=== PATIENT | male | born 1965 | race Caucasian/White ===

== ENCOUNTER 2016-10-20 21:54 | Emergency (ER) | payer OTHER ==
[2016-10-20 22:16] VITALS: RESP 18
[2016-10-20] MEDS ORDERED: SODIUM CHLORIDE 0.9% 1,000 ML IV ONE (23:27)
--- NOTE | 2016-10-20 23:30 | ED ---
Abdominal Pain HPI - General Chief Complaint: Abdominal Pain Stated Complaint: abd pain Time Seen by Provider: 10/20/16 22:43 Source: patient, RN notes reviewed Mode of arrival: ambulatory Limitations: no limitations - History of Present Illness Initial Comments: Patient is a 51-year-old male presents to the emergency room for evaluation of abdominal pain. Patient states pain is been going on throughout the day today. Patient states he was diagnosed with hepatitis C few weeks ago by his primary care provider. Patient states today he has been having worsening pain in his right upper quadrant and left upper quadrant. Patient states he has been nauseous but denies vomiting. Patient denies constipation or diarrhea. Patient denies chest pain or shortness of breath. Patient states the pain worsened after he was done eating [employer] today. Patient denies fevers or chills. Patient denies headache or dizziness. Patient states he has a history of umbilical hernia repair. Patient denies any other history of abdominal surgeries. Patient denies pain or burning during urination, trouble urinating or blood in urine. Patient denies any flank pain. - Related Data Home Medications Medication Instructions Recorded Confirmed Ascorbic Acid [Vitamin C] 500 mg PO DAILY 10/20/16 10/20/16 Cholecalciferol [Vitamin D3] 400 unit PO DAILY 10/20/16 10/20/16 Ferrous Sulfate [Feosol] 325 mg PO DAILY 10/20/16 10/20/16 Previous Rx's Medication Instructions Recorded Naproxen [Naprosyn] 500 mg PO Q12HR PRN #20 tab 10/21/16 Allergies Allergy/AdvReac Type Severity Reaction Status Date / Time No Known Allergies Allergy Verified 10/20/16 22:44 Review of Systems ROS Statement: Those systems with pertinent positive or pertinent negative responses have been documented in the HPI. ROS Other: All systems not noted in ROS Statement are negative. Past Medical History Past Medical History: No Reported History History of Any Multi-Drug Resistant Organisms: None Reported Past Surgical History: No Surgical Hx Reported Past Psychological History: No Psychological Hx Reported Smoking Status: Never smoker Past Alcohol Use History: None Reported Past Drug Use History: None Reported General Exam - General Exam Comments Initial Comments: Sitting in exam room, no distress. Limitations: no limitations General appearance: alert, in no apparent distress Head exam: Present: atraumatic, normocephalic, normal inspection Eye exam: Present: normal appearance ENT exam: Present: normal exam Neck exam: Present: normal inspection Respiratory exam: Present: normal lung sounds bilaterally. Absent: respiratory distress Cardiovascular Exam: Present: regular rate, normal rhythm, normal heart sounds GI/Abdominal exam: Present: soft, tenderness (Right upper quadrant, left upper quadrant, upper midepigastric), normal bowel sounds. Absent: distended, guarding, rebound, rigid Extremities exam: Present: normal inspection Back exam: Present: normal inspection Neurological exam: Present: alert, oriented X3, CN II-XII intact, normal gait Psychiatric exam: Present: normal affect, normal mood Skin exam: Present: warm, dry, intact, normal color. Absent: rash Course Vital Signs 10/20/16 10/21/16 10/21/16 22:12 01:00 02:21 Temperature 98.2 F 100.1 F H 98.0 F Pulse Rate 90 93 92 Respiratory 18 18 18 Rate Blood Pressure 187/88 155/84 129/78 O2 Sat by Pulse 95 97 96 Oximetry Medical Decision Making - Medical Decision Making Patient is a 51-year-old male presents emergency room for evaluation of abdominal pain. Patient noted to have elevated liver enzymes. Ultrasound shows evidence of cholelithiasis without cholecystitis. Patient will be discharged advised follow-up with general surgery. Advised patient to refrain from fatty or spicy foods. Patient states he understands everything that was discussed with him. Return parameters discussed. Case discussed Dr. Perdomo. - Lab Data Result diagrams: 10/20/16 23:50 10/20/16 23:50 Lab Results 10/20/16 10/20/16 Range/Units 23:50 23:50 WBC 7.0 (3.8-10.6) k/uL RBC 4.80 (4.30-5.90) m/uL Hgb 15.2 (13.0-17.5) gm/dL Hct 45.1 (39.0-53.0) % MCV 93.8 (80.0-100.0) fL MCH 31.5 (25.0-35.0) pg MCHC 33.6 (31.0-37.0) g/dL RDW 13.2 (11.5-15.5) % Plt Count 218 (150-450) k/uL Neutrophils % 73 % Lymphocytes % 16 % Monocytes % 6 % Eosinophils % 3 % Basophils % 1 % Neutrophils # 5.1 (1.3-7.7) k/uL Lymphocytes # 1.1 (1.0-4.8) k/uL Monocytes # 0.4 (0-1.0) k/uL Eosinophils # 0.2 (0-0.7) k/uL Basophils # 0.0 (0-0.2) k/uL Sodium 139 (137-145) mmol/L Potassium 4.3 (3.5-5.1) mmol/L Chloride 105 (98-107) mmol/L Carbon Dioxide 24 (22-30) mmol/L Anion Gap 10 mmol/L BUN 15 (9-20) mg/dL Creatinine 0.80 (0.66-1.25) mg/dL Est GFR (MDRD) Af Amer >60 (>60 ml/min/1.73 sqM) Est GFR (MDRD) Non-Af >60 (>60 ml/min/1.73 sqM) Glucose 176 H (74-99) mg/dL Calcium 9.5 (8.4-10.2) mg/dL Total Bilirubin 1.1 (0.2-1.3) mg/dL AST 102 H (17-59) U/L ALT 179 H (21-72) U/L Alkaline Phosphatase 67 (38-126) U/L Total Protein 7.1 (6.3-8.2) g/dL Albumin 3.9 (3.5-5.0) g/dL Amylase 81 (30-110) U/L - Radiology Data Radiology results: report reviewed, image reviewed Disposition Clinical Impression: Cholelithiasis Disposition: HOME SELF-CARE Condition: Good Instructions: Biliary Colic (ED), Gallstones (ED) Additional Instructions: Take Tylenol or Motrin as needed for pain. Please follow-up with general surgeon for further evaluation. If any new symptom arises or symptoms worsen, return to ER as soon as possible. Prescriptions: Naproxen [Naprosyn] 500 mg PO Q12HR PRN #20 tab PRN Reason: Pain Referrals: Mann Lucio MD [Primary Care Provider] - 1-2 days Bertrand Venegas MD [STAFF PHYSICIAN] - 1-2 days Time of Disposition: 01:59
[2016-10-21 00:02] LABS: Basophils % (A) 1 %; CH 32.8; CHCM 35.1; Eosinophils # (A) 0.2 k/uL (0-0.7); Eosinophils % (A) 3 %; HCT 45.1 % (39.0-53.0); HDW 2.55; HGB 15.2 gm/dL (13.0-17.5); Luc # (Auto) 0.11; Luc % (Auto) 2; Lymphocytes # (A) 1.1 k/uL (1.0-4.8); Lymphocytes % (A) 16 %; MCH 31.5 pg (25.0-35.0); MCHC 33.6 g/dL (31.0-37.0); MCV 93.8 fL (80.0-100.0); Mean Platelet Volume 6.5; Monocytes # (A) 0.4 k/uL (0-1.0); Monocytes % (A) 6 %; Neutrophils # (A) 5.1 k/uL (1.3-7.7); Neutrophils % (A) 73 %; RDW 13.2 % (11.5-15.5); WBC (Perox) 6.66
[2016-10-21 00:14] LABS: ALT 179 U/L (21-72); AST 102 U/L (17-59); Alkaline Phosphatase 67 U/L (38-126); Amylase 81 U/L (30-110); Anion Gap 10 mmol/L; Blood Urea Nitrogen 15 mg/dL (9-20); Calcium 9.5 mg/dL (8.4-10.2); Carbon Dioxide 24 mmol/L (22-30); Chloride 105 mmol/L (98-107); Glucose 176 mg/dL (74-99); Non-African American GFR(MDRD) >60 (>60 ml/min/1.73 sqM); Potassium 4.3 mmol/L (3.5-5.1); Sodium 139 mmol/L (137-145); Total Bilirubin 1.1 mg/dL (0.2-1.3); Total Protein 7.1 g/dL (6.3-8.2)
[2016-10-21] MEDS ORDERED: ONDANSETRON 4 MG/2 ML VIAL IVP STA (00:24)
[2016-10-21] MEDS ORDERED: HYDROmorphone 1 MG/ML 1 ML SYRINGE IVP STA (00:25)
[2016-10-21] MEDS ORDERED: KETOROLAC 30 MG/ML 1 ML VIAL IVP STA (01:03)
--- NOTE | 2016-10-21 01:37 | US ---
EXAM: US Abdomen Limited, Right Upper Quadrant CLINICAL HISTORY: Reason: Pain Abdominal pain. Nausea. TECHNIQUE: Real-time ultrasound of the right upper quadrant with image documentation. COMPARISON: No relevant prior studies available. FINDINGS: Liver: Mild hepatomegaly, 20 cm in length. No intrahepatic bile duct dilation. Gallbladder: Multiple gallbladder stones, largest 2.9 cm. Positive sonographic Tena sign. No gallbladder wall thickening or pericholecystic fluid. Common bile duct: Common bile duct 5.0 mm. Distal duct obscured by bowel gas. No stones. No dilation. Pancreas: Obscured by bowel gas. Right kidney: Right kidney 13 cm in length. No stones. No hydronephrosis. Other findings: Per technologist notes: Difficult/limited exam due to patient body habitus and overlying bowel gas. IMPRESSION: Cholelithiasis without ultrasound findings of cholecystitis. Positive sonographic Tena sign. No biliary dilation.
[2016-10-21 02:23] VITALS: BP 129/78; PULSE 92; TEMP 98
== END 2016-10-21 02:21 | disposition home or self-care (01) ==
LOC: EC 21:54
DX: K80.20 Calculus of gallbladder without cholecystitis without obstruction (principal); K80.50 Calculus of bile duct without cholangitis or cholecystitis without obstruction; R11.0 Nausea; Z79.899 Other long term (current) drug therapy; Z53.20 Procedure and treatment not carried out because of patient's decision for unspecified reasons
CPT/HCPCS: 99284; 96374; 96375; 96361; 36415; 80053; 82150; 85025; 76705; J2405; J1885

== ENCOUNTER → 2016-12-06 | Outpatient (CLI) | payer OTHER ==
[2016-12-06 15:15] LABS: Bilirubin, Delta 0.3 mg/dL (0.0-0.2); Total Bilirubin 0.6 mg/dL (0.2-1.3); Total Protein 7.1 g/dL (6.3-8.2)
[2016-12-08 15:30] LABS: HCV Qualitative Result DETECTED (Not detected)
== END | disposition home or self-care (01) ==
LOC: LABWHC1 14:31
DX: B18.2 Chronic viral hepatitis C (principal)
CPT/HCPCS: 36415; 80076; 87522; 87902

== ENCOUNTER → 2017-04-25 | Outpatient (CLI) | payer OTHER ==
[2017-04-25 15:07] LABS: Basophils % (A) 1 %; CH 32.4; CHCM 34.2; Eosinophils # (A) 0.2 k/uL (0-0.7); Eosinophils % (A) 3 %; HDW 2.88; HGB 15.5 gm/dL (13.0-17.5); Luc # (Auto) 0.11; Luc % (Auto) 2; Lymphocytes # (A) 1.4 k/uL (1.0-4.8); Lymphocytes % (A) 23 %; MCH 31.3 pg (25.0-35.0); MCHC 32.9 g/dL (31.0-37.0); MCV 95.2 fL (80.0-100.0); Mean Platelet Volume 6.8; Monocytes # (A) 0.3 k/uL (0-1.0); Monocytes % (A) 6 %; Neutrophils % (A) 66 %; RBC 4.93 m/uL (4.30-5.90); RDW 12.4 % (11.5-15.5)
[2017-04-25 15:24] LABS: Bilirubin, Delta 0.3 mg/dL (0.0-0.2); Total Bilirubin 0.6 mg/dL (0.2-1.3); Total Protein 7.2 g/dL (6.3-8.2)
[2017-04-26 15:13] LABS: Hepatits C Virus RNA, Quant <12 IU/mL (<12); LOG HCV IU/mL <1.08 (<1.08)
== END | disposition home or self-care (01) ==
LOC: LABWHC1 14:40
PROVIDERS: ATTEND Physician Assistant
DX: B18.2 Chronic viral hepatitis C (principal)
CPT/HCPCS: 36415; 80076; 85025; 87522

== ENCOUNTER → 2018-03-10 | Outpatient (CLI) | payer OTHER ==
--- NOTE | 2018-03-10 16:01 | US ---
EXAMINATION TYPE: US bladder DATE OF EXAM: 03/10/2018 COMPARISON: NONE CLINICAL HISTORY: R35.1 Nocturia. Frequent urination at night, patient states getting up 3 or 4 times a night. Check bladder. EXAM MEASUREMENTS: Post Void Residual Volume: 11.7 mL Color Doppler performed to assess ureteral jets. Bilateral Jets seen Normal Post Void Residual (less than 50ml): Yes IMPRESSION: 1. Urinary bladder appears unremarkable by ultrasound.
== END | disposition home or self-care (01) ==
LOC: RADUSWWP 15:34
PROVIDERS: ATTEND Family Medicine
DX: R35.1 Nocturia (principal)
CPT/HCPCS: 76857

== ENCOUNTER → 2018-06-26 | Outpatient (CLI) | payer OTHER ==
--- NOTE | 2018-06-27 06:22 | US ---
EXAMINATION TYPE: US bladder DATE OF EXAM: 06/26/2018 COMPARISON: US March 02, 2018. CLINICAL HISTORY: R35.0 frequent urination. EXAM MEASUREMENTS: Post Void Residual Volume: no residual fluid noted patient states he drank 32 ounces of water and finished at 3:15. He was not full at first check and w as instructed to drink more. Patient still not very full at recheck. Color Doppler performed to assess ureteral jets. Bilateral Jets seen: not seen. Normal Post Void Residual (less than 50ml): no residual fluid noted, Bladder is not greatly distended without intraluminal mass or wall thickening. Bilateral distal urete r jets are not seen. Patient completely empties bladder on voiding. IMPRESSION: No abnormal post void residual noted.
== END | disposition home or self-care (01) ==
LOC: RADUSWWP 16:18
PROVIDERS: ATTEND Family Medicine
DX: R35.0 Frequency of micturition (principal)
CPT/HCPCS: 76857

== ENCOUNTER 2019-03-16 17:22 | Inpatient (IN) | payer OTHER ==
[2019-03-16] MEDS ORDERED: SODIUM CHLORIDE 0.9% 1,000 ML IV STA (18:39)
[2019-03-16] MEDS ORDERED: ONDANSETRON 4 MG/2 ML VIAL IVP STA (18:39)
[2019-03-16] MEDS ORDERED: MAG HYDROX/AL HYDROX/SIMETH 30 ML, HYOSCYAMINE ELIXIR 10 ML, CIMETIDINE HCL 300 MG, LID... PO STA ×4 (18:40)
--- NOTE | 2019-03-16 18:43 | ED ---
Abdominal Pain HPI - General Source: patient Mode of arrival: ambulatory Limitations: no limitations <Sabrina Lopez - Last Filed: 03/16/19 23:27> <Nancy Greene - Last Filed: 03/20/19 16:14> - General Chief Complaint: Abdominal Pain Stated Complaint: epigastric pain Time Seen by Provider: 03/16/19 18:05 - History of Present Illness Initial Comments: 54-year-old male patient presents to the emergency department today for evaluation of midepigastric pain. Patient states symptoms started 2 days ago. Patient states he has been having nausea with this. States pain and nausea worsened with any attempts at eating. He states the pain does radiate through to his back. He denies any fevers but states he has been having cold sweats. Denies any chest pain or shortness of breath. He did have a history of hernia surgery but denies any other abdominal surgeries. Denies any use of medications at this time. He denies any recent travel or sick contacts. Denies any diarrhea or constipation. States he has not used alcohol or drugs for the last 20 years. Patient denies any recent rash, numbness, tingling, dizziness, weakness, hematuria, dysuria, urinary urgency, urinary frequency, headache, visual changes, or any other complaints. (Sabrina Lopez) - Related Data Home Medications Medication Instructions Recorded Confirmed Benazepril [Lotensin] 10 mg PO DAILY 03/16/19 03/16/19 Chlorthalidone [Hygroton] 25 mg PO DAILY 03/16/19 03/16/19 Ergocalciferol [Vitamin D2 50,000 unit PO Q30D 03/16/19 03/16/19 (DRISDOL)] Multivitamins, Thera [Multivitamin 1 tab PO DAILY 03/16/19 03/16/19 (formulary)] Allergies Allergy/AdvReac Type Severity Reaction Status Date / Time No Known Allergies Allergy Verified 03/19/19 10:38 Review of Systems ROS Other: All systems not noted in ROS Statement are negative. <Sabrina Lopez - Last Filed: 03/16/19 23:27> ROS Other: All systems not noted in ROS Statement are negative. <Nancy Greene - Last Filed: 03/20/19 16:14> ROS Statement: Those systems with pertinent positive or pertinent negative responses have been documented in the HPI. Past Medical History Past Medical History: No Reported History History of Any Multi-Drug Resistant Organisms: None Reported Past Surgical History: No Surgical Hx Reported Past Psychological History: No Psychological Hx Reported Smoking Status: Never smoker Past Alcohol Use History: None Reported Past Drug Use History: None Reported <Sabrina Lopez - Last Filed: 03/16/19 23:27> General Exam Limitations: no limitations General appearance: alert, in no apparent distress, other (This is a well- developed, well-nourished adult male patient in no acute distress. Vital signs upon presentation are temperature 97.4F, pulse 102, respirations 18, blood pressure 152/83, pulse ox 97% on room air.) Eye exam: Present: normal appearance, PERRL, EOMI. Absent: scleral icterus, conjunctival injection, periorbital swelling ENT exam: Present: normal exam, normal oropharynx, mucous membranes moist Respiratory exam: Present: normal lung sounds bilaterally. Absent: respiratory distress, wheezes, rales, rhonchi, stridor Cardiovascular Exam: Present: regular rate, normal rhythm, normal heart sounds. Absent: systolic murmur, diastolic murmur, rubs, gallop, clicks GI/Abdominal exam: Present: soft, tenderness (Midepigastric tenderness), normal bowel sounds. Absent: distended, guarding, rebound, rigid Neurological exam: Present: alert, oriented X3, CN II-XII intact Psychiatric exam: Present: normal affect, normal mood Skin exam: Present: warm, dry, intact, normal color. Absent: rash <Sabrina Lopez - Last Filed: 03/16/19 23:27> Course Vital Signs 03/16/19 03/16/19 03/17/19 17:24 23:19 00:00 Temperature 97.4 F L 98.0 F Pulse Rate 102 H 97 Pulse Rate [ 110 H Supine Pulse Oximetery] Respiratory 18 20 20 Rate Blood Pressure 152/83 152/90 Blood Pressure 111/68 [Right Arm Supine] O2 Sat by Pulse 97 98 95 Oximetry Medical Decision Making - Lab Data Result diagrams: 03/16/19 18:35 03/16/19 18:35 - EKG Data -: EKG Interpreted by Wa - Radiology Data Radiology results: report reviewed, image reviewed <Sabrina Lopez - Last Filed: 03/16/19 23:27> - Lab Data Result diagrams: 03/20/19 08:29 03/20/19 08:29 <Nancy Greene - Last Filed: 03/20/19 16:14> - Medical Decision Making 54-year-old male patient presented to the emergency department today for evaluation of midepigastric abdominal pain that radiates through to his back. He also reported nausea and vomiting. Physical examination did reveal midepigastric tenderness. Labs reviewed and did reveal elevated lipase at 1400. Ultrasound of the right upper quadrant abdomen was obtained and showed large gallstones with no dilated ducts or sign of cholecystitis. Case was discussed with Dr. Lucio who agrees to admission and GI consult. Informed patient of all results and plan, he is agreeable. Patient requested to receive no narcotics as he has a history of drug abuse. Toradol has been ordered for pain control. (Sabrina Lopez) I was available for consultation in the emergency department. The history and physical exam were done by the midlevel provider. I was consulted for this patients care. I reviewed the case with the midlevel provider and based on their presentation of the patient, I agree with the assessment, medical decision making and plan of care as documented. Chart was dictated using [employer] dictation software. Attempts were made to correct any dictation errors however some typographical errors may persist. (Nancy Greene) - Lab Data Lab Results 03/16/19 03/16/19 03/16/19 Range/Units 10:00 18:35 18:35 WBC 13.8 H (3.8-10.6) k/uL RBC 5.16 (4.30-5.90) m/uL Hgb 15.4 (13.0-17.5) gm/dL Hct 46.8 (39.0-53.0) % MCV 90.7 (80.0-100.0) fL MCH 29.9 (25.0-35.0) pg MCHC 32.9 (31.0-37.0) g/dL RDW 13.5 (11.5-15.5) % Plt Count 347 (150-450) k/uL Neutrophils % 82 % Lymphocytes % 9 % Monocytes % 4 % Eosinophils % 3 % Basophils % 1 % Neutrophils # 11.4 H (1.3-7.7) k/uL Lymphocytes # 1.3 (1.0-4.8) k/uL Monocytes # 0.6 (0-1.0) k/uL Eosinophils # 0.4 (0-0.7) k/uL Basophils # 0.1 (0-0.2) k/uL Sodium 131 L (137-145) mmol/L Potassium 4.5 (3.5-5.1) mmol/L Chloride 92 L (98-107) mmol/L Carbon Dioxide 28 (22-30) mmol/L Anion Gap 11 mmol/L BUN 15 (9-20) mg/dL Creatinine 0.92 (0.66-1.25) mg/dL Est GFR (CKD-EPI)AfAm >90 (>60 ml/min/1.73 sqM) Est GFR (CKD-EPI)NonAf >90 (>60 ml/min/1.73 sqM) Glucose 243 H (74-99) mg/dL Estimated Ave Glu mg/dL 180 Hemoglobin A1c 7.9 H (4.0-6.0) % Calcium 9.6 (8.4-10.2) mg/dL Total Bilirubin 0.7 (0.2-1.3) mg/dL AST 19 (17-59) U/L ALT 23 (21-72) U/L Alkaline Phosphatase 80 (38-126) U/L Troponin I (0.000-0.034) ng/mL Total Protein 7.6 (6.3-8.2) g/dL Albumin 4.2 (3.5-5.0) g/dL Amylase 176 H (30-110) U/L Lipase 1493 H (23-300) U/L Urine Color Urine Appearance (Clear) Urine pH (5.0-8.0) Ur Specific [place] (1.001-1.035) Urine Protein (Negative) Urine Glucose (UA) (Negative) Urine Ketones (Negative) Urine Blood (Negative) Urine Nitrite (Negative) Urine Bilirubin (Negative) Urine Urobilinogen (<2.0) mg/dL Ur Leukocyte Esterase (Negative) Urine RBC (0-5) /hpf Urine WBC (0-5) /hpf Urine Mucus (None) /hpf 03/16/19 03/16/19 Range/Units 18:35 18:35 WBC (3.8-10.6) k/uL RBC (4.30-5.90) m/uL Hgb (13.0-17.5) gm/dL Hct (39.0-53.0) % MCV (80.0-100.0) fL MCH (25.0-35.0) pg MCHC (31.0-37.0) g/dL RDW (11.5-15.5) % Plt Count (150-450) k/uL Neutrophils % % Lymphocytes % % Monocytes % % Eosinophils % % Basophils % % Neutrophils # (1.3-7.7) k/uL Lymphocytes # (1.0-4.8) k/uL Monocytes # (0-1.0) k/uL Eosinophils # (0-0.7) k/uL Basophils # (0-0.2) k/uL Sodium (137-145) mmol/L Potassium (3.5-5.1) mmol/L Chloride (98-107) mmol/L Carbon Dioxide (22-30) mmol/L Anion Gap mmol/L BUN (9-20) mg/dL Creatinine (0.66-1.25) mg/dL Est GFR (CKD-EPI)AfAm (>60 ml/min/1.73 sqM) Est GFR (CKD-EPI)NonAf (>60 ml/min/1.73 sqM) Glucose (74-99) mg/dL Estimated Ave Glu mg/dL Hemoglobin A1c (4.0-6.0) % Calcium (8.4-10.2) mg/dL Total Bilirubin (0.2-1.3) mg/dL AST (17-59) U/L ALT (21-72) U/L Alkaline Phosphatase (38-126) U/L Troponin I <0.012 (0.000-0.034) ng/mL Total Protein (6.3-8.2) g/dL Albumin (3.5-5.0) g/dL Amylase (30-110) U/L Lipase (23-300) U/L Urine Color Yellow Urine Appearance Clear (Clear) Urine pH 6.0 (5.0-8.0) Ur Specific [place] 1.030 (1.001-1.035) Urine Protein 1+ H (Negative) Urine Glucose (UA) 3+ H (Negative) Urine Ketones Negative (Negative) Urine Blood Negative (Negative) Urine Nitrite Negative (Negative) Urine Bilirubin Negative (Negative) Urine Urobilinogen 2.0 (<2.0) mg/dL Ur Leukocyte Esterase Negative (Negative) Urine RBC 2 (0-5) /hpf Urine WBC 1 (0-5) /hpf Urine Mucus Occasional H (None) /hpf - EKG Data EKG Comments: EKG obtained at 1901 shows normal sinus rhythm with a ventricular rate of 96, WA interval 134, QRS duration 86, QT 342, QTc 432. No evidence of ST elevation or depression. (Sabrina Lopez) - Radiology Data Ultrasound of the abdomen was obtained. Report was reviewed in its entirety. Impression by Dr. Wilde shows large gallstones. No dilated ducts. No free fluid. No adverse change compared to old exam. (Sabrina Lopez) Disposition Decision to Admit Reason: Admit from EC Decision Date: 03/16/19 Decision Time: 21:41 <Sabrina Lopez - Last Filed: 03/16/19 23:27> <Nancy Greene - Last Filed: 03/20/19 16:14> Clinical Impression: Pancreatitis, Cholelithiasis Disposition: ADMITTED IP TO THIS [facility] Condition: Serious
[2019-03-16 18:51] LABS: Basophils # (A) 0.1 k/uL (0-0.2); Basophils % (A) 1 %; Eosinophils # (A) 0.4 k/uL (0-0.7); Eosinophils % (A) 3 %; HCT 46.8 % (39.0-53.0); HGB 15.4 gm/dL (13.0-17.5); Lymphocytes # (A) 1.3 k/uL (1.0-4.8); Lymphocytes % (A) 9 %; MCH 29.9 pg (25.0-35.0); MCHC 32.9 g/dL (31.0-37.0); MCV 90.7 fL (80.0-100.0); Mean Platelet Volume 6.5; Monocytes # (A) 0.6 k/uL (0-1.0); Monocytes % (A) 4 %; Neutrophils # (A) 11.4 k/uL (1.3-7.7); Neutrophils % (A) 82 %; Platelet Count 347 k/uL (150-450); RBC 5.16 m/uL (4.30-5.90); RDW 13.5 % (11.5-15.5); WBC 13.8 k/uL (3.8-10.6)
[2019-03-16 19:00] LABS: ALT 23 U/L (21-72); AST 19 U/L (17-59); African American GFR (CKD) >90 (>60 ml/min/1.73 sqM); Albumin 4.2 g/dL (3.5-5.0); Alkaline Phosphatase 80 U/L (38-126); Amylase 176 U/L (30-110); Anion Gap 11 mmol/L; Blood Urea Nitrogen 15 mg/dL (9-20); Calcium 9.6 mg/dL (8.4-10.2); Carbon Dioxide 28 mmol/L (22-30); Chloride 92 mmol/L (98-107); Glucose 243 mg/dL (74-99); Potassium 4.5 mmol/L (3.5-5.1); Sodium 131 mmol/L (137-145); Total Bilirubin 0.7 mg/dL (0.2-1.3); Total Protein 7.6 g/dL (6.3-8.2)
[2019-03-16 19:05] LABS: Appearance,Urine Clear (Clear); Bilirubin,Urine Negative (Negative); Blood,Urine Negative (Negative); Color,Urine Yellow; Glucose,Urine (UA) 3+ (Negative); Ketones,Urine Negative (Negative); Leukocyte Esterase,Urine Negative (Negative); Mucus,Urine Occasional /hpf; Nitrite,Urine Negative (Negative); Protein,Urine 1+ (Negative); RBC,Urine 2 /hpf (0-5); WBC,Urine 1 /hpf (0-5)
[2019-03-16] MEDS ORDERED: SODIUM CHLORIDE 0.9% 1,000 ML IV ONE (19:33)
--- NOTE | 2019-03-16 19:48 | US ---
EXAMINATION TYPE: US abdomen limited DATE OF EXAM: 03/16/2019 COMPARISON: 10/21/2016 CLINICAL HISTORY: RUQ pain. EXAM MEASUREMENTS: Liver Length: 20.8 cm Gallbladder Wall: 0.3 cm CBD: 0.5 cm Right Kidney: 13.2 x 5.6 x 6.0 cm Morbidly obese patient, technically difficult and limited study. Pancreas: Obscured by bowel gas Liver: unable to penetrate, hepatomegaly, fatty infiltrate Gallbladder: cholelithiasis, somewhat limited visualization Evidence for sonographic Tena's sign: no CBD: wnl Right Kidney: Inferior pole obscured by overlying bowel gas, limited views IMPRESSION: There are large gallstones. No dilated ducts. No free fluid. No adverse change compared t o old exam.
[2019-03-16] MEDS ORDERED: MORPHINE SULFATE 4 MG/ML SYRINGE IVP STA ×2 (21:09→23:36)
[2019-03-16] MEDS ORDERED: ONDANSETRON 4 MG/2 ML VIAL IVP PRN (21:39)
[2019-03-16] MEDS ORDERED: MORPHINE SULFATE 4 MG/ML SYRINGE IV PRN (21:39)
[2019-03-16] MEDS ORDERED: NALOXONE 0.4 MG/ML 1 ML VIAL IV PRN (21:45)
[2019-03-16] MEDS ORDERED: KETOROLAC 30 MG/ML 1 ML VIAL IVP STA (23:10)
[2019-03-17] MEDS: SODIUM CHLORIDE 0.9% 1,000 ML IV SCH ×5 (00:15→20:49)
[2019-03-17] MEDS: LISINOPRIL 10 MG TAB PO SCH (08:16)
[2019-03-17 08:40] LABS: ALT 23 U/L (21-72); AST 16 U/L (17-59); African American GFR (CKD) >90 (>60 ml/min/1.73 sqM); Albumin 3.6 g/dL (3.5-5.0); Alkaline Phosphatase 64 U/L (38-126); Anion Gap 8 mmol/L; Blood Urea Nitrogen 16 mg/dL (9-20); Calcium 8.6 mg/dL (8.4-10.2); Carbon Dioxide 29 mmol/L (22-30); Chloride 95 mmol/L (98-107); Glucose 168 mg/dL (74-99); Potassium 4.8 mmol/L (3.5-5.1); Sodium 132 mmol/L (137-145); Total Bilirubin 0.7 mg/dL (0.2-1.3); Total Protein 6.7 g/dL (6.3-8.2)
[2019-03-17] MEDS ORDERED: ACETAMINOPHEN TAB 325 MG TAB PO PRN (10:31)
[2019-03-17] MEDS: KETOROLAC 30 MG/ML 1 ML VIAL IVP PRN ×2 (11:57→19:03)
--- NOTE | 2019-03-17 15:11 | HP ---
HISTORY AND PHYSICAL CHIEF COMPLAINT: Abdominal pain. HISTORY OF PRESENT ILLNESS: This is another admission for this 54-year-old white male who has a history of hypertension. He started to develop pain in the right upper quadrant and is somewhat in the right flank about 2 days ago and it steadily grew worse and worse. He did have some nausea and vomiting and came to the emergency room where his lipase was elevated and stones were identified in the gallbladder. REVIEW OF SYSTEMS: He has had no headaches, problems with vision or hearing, chest pain, shortness of breath, heart disease, hematemesis, melena, hematochezia, colitis, cirrhosis, hepatitis, renal failure, diabetes, etc. Past medical history, family history and personal and social histories demonstrates that he is not allergic to any medication. He is on vitamin D, chlorthalidone 25 mg once a day, Lotensin 10 mg once a day. He has been receiving testosterone injections and uses sildenafil. Remainder of his history is unremarkable. He used to smoke, but has stopped. PHYSICAL EXAMINATION: Blood pressure 130/80, pulse of 88, respirations 20 and he is afebrile. GENERAL: He appeared to be well developed, well nourished, no acute distress. Skin color is normal. Skin is warm, dry. Lymph nodes not enlarged. Head, ears, eyes, nose, mouth, and throat were normal. Neck veins not distended and could not be assessed due to the adiposity of his neck. Chest is clear. Cardiac exam is normal. Abdomen is protuberant. He is tender over the epigastrium. Bowel sounds present. EXTREMITIES: Normal. Neurologically, he is intact. IMPRESSION: 1. Gallstone pancreatitis. 2. Hypertension. PLAN: 1. Bed rest. 2. IV fluids. 3. N.p.o. 4. Surgical evaluation. 5. Follow pancreatic enzymes. MMODL / IJN: [id number] /
--- NOTE | 2019-03-17 15:15 | PN ---
PROGRESS NOTE CHIEF COMPLAINT: Pancreatitis and cholelithiasis. HISTORY OF PRESENT ILLNESS: This gentleman is a little bit more comfortable. We are awaiting to have him evaluated. PHYSICAL EXAMINATION: He is afebrile. Chest is clear. Cardiac exam is normal. He is tender over the epigastrium. Bowel sounds are present. IMPRESSION: 1. Pancreatitis. 2. Cholecystitis and cholelithiasis. PLAN: Await consult and follow pancreatic enzymes to determine whether he will undergo surgery sooner rather than later. MMODL / IJN: [id number] /
[2019-03-17 17:32] LABS: Hemoglobin A1C 7.9 % (4.0-6.0)
--- NOTE | 2019-03-17 23:39 | P.CONS ---
History of Present Illness - Reason for Consult Consult date: 03/17/19 Pancreatitis Requesting physician: Mann Lucio - Chief Complaint Abdominal pain - History of Present Illness 54-year-old male with a medical history significant for obesity and a prior hernia surgery who presented to the hospital with complaints of 2 days of abdom inal pain. The patient reports pain in the epigastric region described as achy and constant in nature. He does report some radiation of the pain into his back. He denies any prior episodes of similar pain. He does report associated nausea made worse with eating but no vomiting. He denies any change in bowel habits, constipation or diarrhea. No sick contacts, or unusual foods, new medications or other triggering events. He denies any alcohol use for the last 19 years. The patient had evaluation with labs significant for WBC 13.8, hemoglobin 15.4, platelet count 347,000, lipase 1493, total bilirubin 0.7, alkaline phosphatase 64, AST 16 and ALTs 23 on presentation. Ultrasound of the abdomen did show a large gallstone with no ductal dilation. Review of Systems REVIEW OF SYSTEMS: CONSTITUTIONAL: Denies any fevers, chills, weight change or fatigue. CARDIOVASCULAR: Denies any chest pain, palpitations high or low blood pressures RESPIRATORY: Denies any shortness of breath, hemoptysis or cough. GENITOURINARY: No dysuria or hematuria. MUSCULOSKELETAL: No weakness reported. SKIN: Denies any new rashes or lesions, jaundice or pallor. PSYCHIATRIC: Denies any depression or anxiety. NEUROLOGY: Denies headache, denies any new focal deficits. EARS/NOSE/THROAT: No recent hearing change, congestion, nasal discharge or sore throat. EYES: No pain in eyes, discharge or change in vision. GASTROINTESTINAL: As per HPI. Past Medical History Past Medical History: No Reported History History of Any Multi-Drug Resistant Organisms: None Reported Past Surgical History: No Surgical Hx Reported Past Psychological History: No Psychological Hx Reported Smoking Status: Never smoker Past Alcohol Use History: None Reported Past Drug Use History: None Reported Additional History: Family history: Reviewed with the patient and noncontributory to current medical presentation. Medications and Allergies Home Medications Medication Instructions Recorded Confirmed Type Benazepril [Lotensin] 10 mg PO DAILY 03/16/19 03/16/19 History Chlorthalidone [Hygroton] 25 mg PO DAILY 03/16/19 03/16/19 History Ergocalciferol [Vitamin D2] 50,000 unit PO Q30D 03/16/19 03/16/19 History Multivitamins, Thera [Multivitamin 1 tab PO DAILY 03/16/19 03/16/19 History (formulary)] Allergies Allergy/AdvReac Type Severity Reaction Status Date / Time No Known Allergies Allergy Verified 03/16/19 22:34 Physical Exam Vitals: Vital Signs Temp Pulse Resp BP Pulse Ox 03/17/19 21:00 98.2 F 87 18 165/93 99 03/17/19 15:06 18 03/17/19 15:00 97.7 F 88 20 163/81 99 03/17/19 05:00 98.6 F 89 18 128/79 97 03/17/19 00:00 98.0 F 110 H 20 111/68 95 Intake and Output 03/17/19 03/17/19 03/18/19 14:59 22:59 06:59 Intake Total 0 450 Balance 0 450 Intake: Oral 0 450 Other: # Voids 2 1 # Bowel Movements 2 On physical examination, patient appears comfortable in no apparent distress. HEAD: Normocephalic, atraumatic. EYES: No scleral icterus. No conjunctival injection. MOUTH: No lesions, tongue midline. NECK: Trachea midline, no gross abnormalities. CHEST: Clear to auscultation with no wheezing or rhonchi appreciated. HEART: Regular rate and rhythm. ABDOMEN: Soft, obese, tender to palpation. Bowel sounds are positive. No organomegaly. No guarding or rigidity. EXTREMITIES: No pedal edema. SKIN: No rashes, no jaundice. NEUROLOGIC: Alert and oriented x3. No focal deficits. Results CBC & Chem 7: 03/16/19 18:35 03/17/19 07:32 Labs: Abnormal Lab Results - Last 24 Hours (Table) 03/16/19 03/17/19 Range/Units 10:00 07:32 Sodium 132 L (137-145) mmol/L Chloride 95 L (98-107) mmol/L Glucose 168 H (74-99) mg/dL Hemoglobin A1c 7.9 H (4.0-6.0) % AST 16 L (17-59) U/L Lipase 599 H (23-300) U/L US - abdomen: report reviewed (Ultrasound of the abdomen with findings of cholelithiasis and no CBD dilation) Assessment and Plan (1) Pancreatitis Narrative/Plan: 54-year-old male presenting with abdominal pain and nausea found to have elevation in his lipase at 1493 with normal liver enzymes and ultrasound significant for cholelithiasis without any ductal dilation. Patient denies any alcohol use. Unclear etiology, may relate to a gallstone which has passed through the bile duct, or other etiology. Triglyceride level and autoimmune workup pending. Current Visit: Yes Status: Acute Code(s): K85.90 - ACUTE PANCREATITIS WITHOUT NECROSIS OR INFECTION, UNSP SNOMED Code(s): 82655187 (2) Cholelithiasis Current Visit: Yes Status: Acute Code(s): K80.20 - CALCULUS OF GALLBLADDER W/O CHOLECYSTITIS W/O OBSTRUCTION SNOMED Code(s): 205171209 Plan: Supportive care Okay for liquids, advance as tolerated Surgical consult has been placed for evaluation of cholelithiasis No plan for ERCP with normal liver enzymes and no ductal dilation seen on ultrasound VALE, triglyceride level ordered Continue pain control and IV fluid hydration Thank you for allowing us to participate in the care of this patient we will continue to follow
[2019-03-18] MEDS: SODIUM CHLORIDE 0.9% 1,000 ML IV SCH ×4 (04:58→22:28)
[2019-03-18] MEDS: LISINOPRIL 10 MG TAB PO SCH (07:17)
[2019-03-18] MEDS: KETOROLAC 30 MG/ML 1 ML VIAL IVP PRN ×3 (07:20→22:28)
[2019-03-18 07:33] LABS: Triglycerides 89 mg/dL (<150)
--- NOTE | 2019-03-18 08:46 | P.GSCN ---
History of Present Illness Consult date: 03/18/19 Reason for Consult: Right upper quadrant pain History of present illness: This 54-year-old male who is minimal hospital for workup. Hepatitis. Patient will have evidence of cholelithiasis. Patient had epigastric pain which radiated to his back. He currently states his pain is improved. His liver function tests are normal. Ultrasound shows evidence of a large gallstone Past Medical History Past Medical History: No Reported History History of Any Multi-Drug Resistant Organisms: None Reported Past Surgical History: No Surgical Hx Reported Past Psychological History: No Psychological Hx Reported Smoking Status: Never smoker Past Alcohol Use History: None Reported Past Drug Use History: None Reported Medications and Allergies Home Medications Medication Instructions Recorded Confirmed Type Benazepril [Lotensin] 10 mg PO DAILY 03/16/19 03/16/19 History Chlorthalidone [Hygroton] 25 mg PO DAILY 03/16/19 03/16/19 History Ergocalciferol [Vitamin D2] 50,000 unit PO Q30D 03/16/19 03/16/19 History Multivitamins, Thera [Multivitamin 1 tab PO DAILY 03/16/19 03/16/19 History (formulary)] Allergies Allergy/AdvReac Type Severity Reaction Status Date / Time No Known Allergies Allergy Verified 03/16/19 22:34 Surgical - Exam Vital Signs Temp Pulse Resp BP Pulse Ox 97.4 F L 102 H 18 152/83 97 03/16/19 17:24 03/16/19 17:24 03/16/19 17:24 03/16/19 17:24 03/16/19 17:24 - General well developed, well nourished, no distress - Eyes PERRL - ENT normal pinna - Neck no masses - Respiratory normal expansion - Cardiovascular Rhythm: regular - Abdomen Mild epigastric tenderness Abdomen: soft Results - Labs 03/16/19 18:35 03/17/19 07:32 Abnormal Lab Results - Last 24 Hours (Table) 03/16/19 Range/Units 10:00 Hemoglobin A1c 7.9 H (4.0-6.0) % Diabetes panel 03/16/19 03/18/19 Range/Units 10:00 06:43 Hemoglobin A1c 7.9 H (4.0-6.0) % Triglycerides 89 (<150) mg/dL Assessment and Plan Assessment: Lithiasis Right quadrant pain. Patient will undergo laparoscopic cholecystectomy in the a.m.
--- NOTE | 2019-03-18 19:27 | PN ---
PROGRESS NOTE DATE OF SERVICE: 03/18/2019 CHIEF COMPLAINT: Abdominal pain, pancreatitis and gallbladder disease. HISTORY OF PRESENT ILLNESS: This gentleman's stomach pain is a little bit better. He is going for the surgery tomorrow. He has had no fever, chills, cough, chest pain, etc. PHYSICAL EXAMINATION: Chest is clear. Cardiac exam is normal. The abdomen is still protuberant and a little bit tender over the epigastrium. Bowel sounds are present. Extremities are normal. Laboratory studies are noted and are normal. IMPRESSION: Pancreatitis and cholecystitis/cholelithiasis. PLAN: Surgery tomorrow to remove the gallbladder. MMODL / IJN: [id number] /
--- NOTE | 2019-03-18 19:44 | P.PN ---
Subjective Progress Note Date: 03/18/19 Principal diagnosis: Acute pancreatitis, cholelithiasis Patient seen lying in bed reporting that her abdominal pain is improved. No nausea vomiting reported. Does report some loose stool this morning. Objective - Vital Signs Vital signs: Vital Signs Temp 98.2 F 03/18/19 05:00 Pulse 93 03/18/19 05:00 Resp 18 03/18/19 05:00 BP 151/83 03/18/19 05:00 Pulse Ox 93 L 03/18/19 05:00 Intake & Output 03/17/19 03/18/19 03/18/19 18:59 06:59 18:59 Intake Total 100 750 400 Balance 100 750 400 Intake: Oral 100 750 400 Other: Voiding Method Toilet # Voids 2 2 # Bowel Movements 2 - Exam On physical examination, patient appears comfortable in no apparent distress. HEAD: Normocephalic, atraumatic. EYES: No scleral icterus. No conjunctival injection. MOUTH: No lesions, tongue midline. NECK: Trachea midline, no gross abnormalities. CHEST: Clear to auscultation with no wheezing or rhonchi appreciated. HEART: Regular rate and rhythm. ABDOMEN: Soft, obese, and tender to palpation. Bowel sounds are positive. No o rganomegaly. No guarding or rigidity. EXTREMITIES: No pedal edema. SKIN: No rashes, no jaundice. NEUROLOGIC: Alert and oriented x3. No focal deficits. - Labs CBC & Chem 7: 03/16/19 18:35 03/17/19 07:32 Labs: Abnormal Lab Results - Last 24 Hours (Table) 03/16/19 Range/Units 10:00 Hemoglobin A1c 7.9 H (4.0-6.0) % Assessment and Plan (1) Pancreatitis Narrative/Plan: 54-year-old male presenting with abdominal pain and nausea found to have elevation in his lipase at 1493 with normal liver enzymes and ultrasound significant for cholelithiasis without any ductal dilation. Patient denies any alcohol use. Unclear etiology, may relate to a gallstone which has passed through the bile duct, or other etiology. Current Visit: Yes Status: Acute Code(s): K85.90 - ACUTE PANCREATITIS WITHOUT NECROSIS OR INFECTION, UNSP SNOMED Code(s): 98275590 (2) Cholelithiasis Current Visit: Yes Status: Acute Code(s): K80.20 - CALCULUS OF GALLBLADDER W/O CHOLECYSTITIS W/O OBSTRUCTION SNOMED Code(s): 365199286 Plan: Supportive care Okay for liquids, advance as tolerated Surgical consult and plan is for cholecystectomy tomorrow No plan for ERCP with normal liver enzymes and no ductal dilation seen on ultr asound Triglycerides normal, autoimmune evaluation still pending Continue pain control and IV fluid hydration Thank you for allowing us to participate in the care of this patient we will continue to follow
[2019-03-19] MEDS: LISINOPRIL 10 MG TAB PO SCH (08:51)
[2019-03-19] MEDS: SODIUM CHLORIDE 0.9% 1,000 ML IV SCH ×2 (08:54→15:30)
[2019-03-19] MEDS ORDERED: LACTATED RINGERS 1,000 ML IV ONE ×2 (10:25→13:54)
[2019-03-19] MEDS ORDERED: HEPARIN SODIUM,PORCINE 5,000 UNIT/ML 1 ML VIAL SQ STA (11:00)
[2019-03-19 11:12] LABS: IgG Subclass 4 25.7 mg/dL (3.0-175.0)
[2019-03-19 11:19] LABS: Glucose,Whole Blood 126 mg/dL (75-99)
[2019-03-19] MEDS ORDERED: BUPIVACAINE (PF) 0.25% 30 ML VIAL SQ ONE (11:42)
[2019-03-19] MEDS ORDERED: NEOSTIGMINE 1 MG/ML 10 ML VIAL ONE (11:58)
[2019-03-19] MEDS ORDERED: KETOROLAC 30 MG/ML 1 ML VIAL ONE (11:58)
[2019-03-19] MEDS ORDERED: MIDAZOLAM 2 MG/2 ML VIAL ONE (11:58)
[2019-03-19] MEDS ORDERED: GLYCOPYRROLATE 0.2 MG/ML 2 ML VIAL ONE (11:58)
[2019-03-19] MEDS ORDERED: PHENYLEPHRINE-0.9% NACL SYG 1 MG/10 ML SYRINGE ONE (11:58)
[2019-03-19] MEDS ORDERED: fentaNYL (PF) 50 MCG/ML 2 ML AMP ONE (11:58)
[2019-03-19] MEDS ORDERED: LIDOCAINE 1% INJ 10MG/ML (20 ML MDV) ONE (11:58)
[2019-03-19] MEDS ORDERED: SUCCINYLCHOLINE CHLORIDE VIAL 200 MG/10 ML VIAL IV ONE (11:58)
[2019-03-19] MEDS ORDERED: ROCURONIUM BROMIDE 10 MG/ML 10 ML VIAL IV ONE (11:58)
[2019-03-19] MEDS ORDERED: SODIUM CHLORIDE 0.9% 100 ML BAG ONE (11:58)
[2019-03-19] MEDS ORDERED: PROPOFOL 10 MG/ML 20 ML VIAL IV ONE (11:58)
[2019-03-19] MEDS ORDERED: ceFAZolin 1,000 MG VIAL ONE (11:58)
[2019-03-19] MEDS ORDERED: NALOXONE 0.4 MG/ML 1 ML VIAL IV PRN (13:54)
[2019-03-19] MEDS ORDERED: HYDROcodone/APAP 5-325MG 1 EACH TAB PO PRN (13:54)
[2019-03-19] MEDS ORDERED: HYDROmorphone 0.5 MG/0.5 ML SYRINGE IVP PRN (13:54)
--- NOTE | 2019-03-19 13:54 | P.OP ---
Date of Procedure: 03/19/19 Preoperative Diagnosis: Cholecystitis Postoperative Diagnosis: Cholecystitis Cholelithiasis Procedure(s) Performed: Laparoscopic cholecystectomy Anesthesia: ROSEMARY Surgeon: Bertrand Venegas Estimated Blood Loss (ml): 5 Pathology: other (Gallbladder) Condition: stable Disposition: PACU Description of Procedure: The patient was placed on the operating table. The patient received a general endotracheal tube anesthesia. The patients abdomen was prepped and draped in the usual sterile fashion. Through an infraumbilical stab incision, the fascia of the anterior abdominal wall was grasped with a pair of Kochers and then the Veress needle was placed in the peritoneal cavity. Position of the Veress needle was confirmed with positive drop test. The abdomen was then insufflated. After adequate insufflation, the 10 mm trocar was placed in the peritoneal cavity. Following this the laparoscope was placed in the peritoneal cavity. The patient was placed in the head-up, right side up position and then a 5 mm trocar was placed in the right lateral and right subcostal position under direct visualization. A 8 mm trocar was placed in the epigastric position. The gallbladder was grasped in the fundus and infundibulum. Traction on the gallbladder was placed in the lateral and the cephalad positions. The triangle of Calot was visualized.. The cystic duct was bluntly dissected until the union of the cystic duct and common bile duct was seen. A critical view of safety was achieved. The cystic duct was then divided and sealed with the Harmonic scissors. A PDS Endoloop was then placed throughout the cystic duct stump. The cystic artery divided and sealed with the Harmonic scissors. The gallbladder was then removed from the liver bed using Harmonic scissors. The gallbladder was then extracted through the epigastric port site. Operative field was checked for any bleeding spots and Harmonic scissors was used to coagulate the liver bed. The abdomen was irrigated. The trocars were removed. The skin was closed using interrupted 3-0 Vicryl suture. Dermabond dressing were applied. The patient tolerated the procedure well.
[2019-03-19] MEDS: KETOROLAC 30 MG/ML 1 ML VIAL IVP PRN (15:42)
--- NOTE | 2019-03-19 19:46 | PN ---
PROGRESS NOTE CHIEF COMPLAINT: Abdominal pain and pancreatitis. HISTORY OF PRESENT ILLNESS: This gentleman is doing better. Pain is almost gone. He is going to the OR today for cholecystectomy. PHYSICAL EXAMINATION: His chest is clear. The cardiac exam is normal. The abdomen is protuberant and soft. IMPRESSION: 1. Pancreatitis. 2. Cholecystitis and cholelithiasis. 3. Hypertension. PLAN: Surgery today. MMODL / ARIELN: [id number] /
--- NOTE | 2019-03-19 23:17 | P.PN ---
Subjective Progress Note Date: 03/19/19 Principal diagnosis: Acute pancreatitis, cholelithiasis The patient is seen lying in bed comfortably after cholecystectomy earlier in the day. He has tolerated a diet this afternoon. No abdominal pain reported. Objective - Vital Signs Vital signs: Vital Signs Temp 97.9 F 03/19/19 20:46 Pulse 94 03/19/19 20:46 Resp 14 03/19/19 20:46 BP 151/74 03/19/19 20:46 Pulse Ox 99 03/19/19 20:46 Intake & Output 03/19/19 03/19/19 03/20/19 06:59 18:59 06:59 Intake Total 1200 1965 1000 Output Total 10 Balance 1200 1955 1000 Intake: IV 1025 Intake, IV Titration 1200 1000 Amount Lactated Ringers 1,000 ml 1000 @ 125 mls/hr IV .Q8H ONE Rx#:[id number] Sodium Chloride 0.9% 1, 1200 000 ml @ 150 mls/hr IV . Q6H40M KARSTEN Rx#:[id number] Oral 940 Output: Estimated Blood Loss 10 Other: Voiding Method Toilet # Voids 1 2 - Exam On physical examination, patient appears comfortable in no apparent distress. HEAD: Normocephalic, atraumatic. EYES: No scleral icterus. No conjunctival injection. MOUTH: No lesions, tongue midline. NECK: Trachea midline, no gross abnormalities. CHEST: Clear to auscultation with no wheezing or rhonchi appreciated. HEART: Regular rate and rhythm. ABDOMEN: Soft, obese, and tender to palpation appropriately after laparoscopic cholecystectomy. Bowel sounds are positive. No organomegaly. No guarding or rigidity. EXTREMITIES: No pedal edema. SKIN: No rashes, no jaundice. NEUROLOGIC: Alert and oriented x3. No focal deficits. - Labs CBC & Chem 7: 03/16/19 18:35 03/17/19 07:32 Labs: Abnormal Lab Results - Last 24 Hours (Table) 03/19/19 Range/Units 11:14 POC Glucose (mg/dL) 126 H (75-99) mg/dL Assessment and Plan (1) Pancreatitis Narrative/Plan: 54-year-old male presenting with abdominal pain and nausea found to have elevation in his lipase at 1493 with normal liver enzymes and ultrasound significant for cholelithiasis without any ductal dilation. Patient denies any alcohol use. Unclear etiology, may relate to a gallstone which has passed through the bile duct, or other etiology. Current Visit: Yes Status: Acute Code(s): K85.90 - ACUTE PANCREATITIS WITHOUT NECROSIS OR INFECTION, UNSP SNOMED Code(s): 71922735 (2) Cholelithiasis Current Visit: Yes Status: Acute Code(s): K80.20 - CALCULUS OF GALLBLADDER W/O CHOLECYSTITIS W/O OBSTRUCTION SNOMED Code(s): 536886612 Plan: Supportive care Diet per the surgical service Okay for discharge from gastroenterology otherwise stable No plans for further evaluation at this time Thank you for allowing us to participate in the care of this patient, the gastro enterology service will stand by, please call us back with any questions or concerns
[2019-03-20 06:11] VITALS: BP 134/96; PULSE 101; RESP 16; TEMP 98.7
[2019-03-20] MEDS: LISINOPRIL 10 MG TAB PO SCH (07:47)
[2019-03-20] MEDS ORDERED: ENOXAPARIN 40 MG/0.4 ML SYRINGE SQ SCH (09:00)
[2019-03-20 09:36] LABS: Basophils # (A) 0.1 k/uL (0-0.2); Basophils % (A) 1 %; Eosinophils # (A) 0.3 k/uL (0-0.7); Eosinophils % (A) 4 %; HCT 40.5 % (39.0-53.0); HGB 13.4 gm/dL (13.0-17.5); Lymphocytes # (A) 1.1 k/uL (1.0-4.8); Lymphocytes % (A) 15 %; MCH 29.6 pg (25.0-35.0); MCHC 33.1 g/dL (31.0-37.0); MCV 89.6 fL (80.0-100.0); Mean Platelet Volume 5.9; Monocytes # (A) 0.4 k/uL (0-1.0); Monocytes % (A) 6 %; Neutrophils # (A) 5.3 k/uL (1.3-7.7); Neutrophils % (A) 72 %; Platelet Count 298 k/uL (150-450); RBC 4.53 m/uL (4.30-5.90); WBC 7.3 k/uL (3.8-10.6)
[2019-03-20 09:43] LABS: ALT 31 U/L (21-72); AST 24 U/L (17-59); African American GFR (CKD) >90 (>60 ml/min/1.73 sqM); Albumin 3.2 g/dL (3.5-5.0); Alkaline Phosphatase 63 U/L (38-126); Anion Gap 8 mmol/L; Blood Urea Nitrogen 12 mg/dL (9-20); Calcium 8.4 mg/dL (8.4-10.2); Carbon Dioxide 27 mmol/L (22-30); Chloride 99 mmol/L (98-107); Glucose 172 mg/dL (74-99); Potassium 4.2 mmol/L (3.5-5.1); Sodium 134 mmol/L (137-145); Total Bilirubin 0.7 mg/dL (0.2-1.3)
--- NOTE | 2019-03-20 13:35 | P.PN ---
Subjective Progress Note Date: 03/20/19 CHIEF COMPLAINT: cholecystitis, cholelithiasis HISTORY OF PRESENT ILLNESS: patient is status post laparoscopic cholecystectomy. Postop day #1. Patient examined at bedside. He denies abdominal pain. Tolerating diet. Denies nausea or vomiting. Vital signs have been stable. He is anxious to be discharged home today. PHYSICAL EXAM: VITAL SIGNS: Reviewed. GENERAL: Well-developed in no acute distress. HEENT: No sclera icterus. Extraocular movements grossly intact. Moist buccal mucosa. Head is atraumatic, normocephalic. ABDOMEN: Soft. Nondistended. Nontender. surgical incision sites clean dry and intact. NEUROLOGIC: Alert and oriented. Cranial nerves II through XII grossly intact. ASSESSMENT: 1. Cholelithiasis, status post laparoscopic cholecystectomy PLAN: pain control. Continue Tylenol as needed. Patient states his pain has been controlled without narcotics and does not require rx for narcotics at discharge. Incentive spirometer Activity as tolerated Patient may be discharged home today from a surgical standpoint. Follow-up with Dr. Venegas in one week. Nurse practitioner note has been reviewed by physician. Signing provider agrees with the documented findings, assessment, and plan of care. Objective - Vital Signs Vital signs: Vital Signs Temp 98.7 F 03/20/19 04:55 Pulse 101 H 03/20/19 04:55 Resp 16 03/20/19 04:55 BP 134/96 03/20/19 04:55 Pulse Ox 94 L 03/20/19 04:55 Intake & Output 03/19/19 03/20/19 03/20/19 18:59 06:59 18:59 Intake Total 1965 1000 Output Total 10 Balance 1954 1000 Intake: IV 1025 Intake, IV Titration 1000 Amount Lactated Ringers 1,000 ml 1000 @ 125 mls/hr IV .Q8H ONE Rx#:[id number] Oral 940 Output: Estimated Blood Loss 10 Other: Voiding Method Toilet Toilet # Voids 2 2 - Labs CBC & Chem 7: 03/20/19 08:29 03/20/19 08:29 Labs: Abnormal Lab Results - Last 24 Hours (Table) 03/20/19 Range/Units 08:29 Sodium 134 L (137-145) mmol/L Glucose 172 H (74-99) mg/dL Total Protein 6.0 L (6.3-8.2) g/dL Albumin 3.2 L (3.5-5.0) g/dL
--- NOTE | 2019-03-20 21:41 | DS ---
DISCHARGE SUMMARY CHIEF COMPLAINT: Abdominal pain. HISTORY OF PRESENT ILLNESS AND PHYSICAL EXAMINATION: Details of this man's history and physical can be found in the initial workup. LABORATORY STUDIES: While he was in the hospital he had laboratory studies, details of which can be found in the laboratory section of his chart. COURSE IN THE HOSPITAL: After admission he was placed on bedrest, started on intravenous fluids and analgesics. Pancreatic enzymes started to fall and his pain started to subside. It was found that he had cholelithiasis and cholecystitis and was referred to Surgery. He was taken for an uneventful cholecystectomy and did well. It was felt that he could go home on the March 20. He will go home on light activity about the house and his usual diet and activity and he will be seen in the office in several days. His blood sugars were elevated in the hospital. These will be followed as well. FINAL DIAGNOSES: 1. Pancreatitis. 2. Cholecystitis and cholelithiasis. 3. Elevated blood sugars. 4. Obesity. 5. Hypertension. OPERATION: Cholecystectomy. CONSULTATION: General Surgery. He is improved. MMODL / IJN: [id number] /
== END 2019-03-20 14:02 | disposition home or self-care (01) | DRG 418 ==
LOC: EC 17:22 → 4MS4W 21:41
PROVIDERS: ADMIT Family Medicine; ATTEND Family Medicine
PROC: 0FT44ZZ Resection of Gallbladder, Percutaneous Endoscopic Approach (ICD-10-PCS; principal; 2019-03-19 09:30)
DX: K85.10 Biliary acute pancreatitis without necrosis or infection (principal); K80.10 Calculus of gallbladder with chronic cholecystitis without obstruction; Z68.41 Body mass index [BMI] 40.0-44.9, adult; E66.9 Obesity, unspecified; I10 Essential (primary) hypertension; Z79.899 Other long term (current) drug therapy
CPT/HCPCS: 36415; 76705; 80053; 81001; 82150; 82787; 83036; 83690; 84478; 84484; 85025; 86038; 88304; 96361; 96374; 96375; 99285

== ENCOUNTER 2019-05-17 07:51 | Day surgery (SDC) | payer OTHER ==
[2019-05-15 12:19] VITALS: BMI 43.0
[~2019-05-17 07:51] MED LIST: LACTATED RINGERS 1,000 ML IV SCH
[2019-05-17 08:13] VITALS: TEMP 98
[2019-05-17] MEDS ORDERED: LIDOCAINE 1% 20 ML VIAL (10MG/ML) FOR IV START INTRADERMA ONE (08:18)
[2019-05-17] MEDS ORDERED: PROPOFOL 10 MG/ML 20 ML VIAL IV ONE (08:56)
--- NOTE | 2019-05-17 09:02 | P.GSHP ---
History of Present Illness H&P Date: 05/17/19 Chief Complaint: Screening colonoscopy This a 54-year-old male presents today for screening colonoscopy. Patient denies any significant GI complaints. Past Medical History Past Medical History: No Reported History Additional Past Medical History / Comment(s): "borlerline blood pressure", History of Any Multi-Drug Resistant Organisms: None Reported Past Surgical History: Cholecystectomy, Ear Surgery, Hernia Repair Past Anesthesia/Blood Transfusion Reactions: Motion Sickness Smoking Status: Never smoker - Past Family History Mother Family Medical History: Cancer Additional Family Medical History / Comment(s): breast Medications and Allergies Home Medications Medication Instructions Recorded Confirmed Type Benazepril [Lotensin] 10 mg PO DAILY 03/16/19 05/17/19 History Chlorthalidone [Hygroton] 25 mg PO DAILY 03/16/19 05/17/19 History Ergocalciferol [Vitamin D2 50,000 unit PO Q30D 03/16/19 05/17/19 History (DRISDOL)] Multivitamins, Thera [Multivitamin 1 tab PO DAILY 03/16/19 05/17/19 History (formulary)] Allergies Allergy/AdvReac Type Severity Reaction Status Date / Time No Known Allergies Allergy Verified 05/17/19 08:06 Surgical - Exam Vital Signs Temp Pulse Resp BP Pulse Ox 98.0 F 116 H 19 152/93 98 05/17/19 08:11 05/17/19 08:11 05/17/19 08:11 05/17/19 08:11 05/17/19 08:11 - General well developed, well nourished, no distress - Eyes PERRL - ENT normal pinna - Neck no masses - Respiratory normal expansion - Cardiovascular Rhythm: regular - Abdomen Abdomen: soft, non tender Assessment and Plan Assessment: We'll perform screening colonoscopy.
--- NOTE | 2019-05-17 09:14 | P.OP ---
Date of Procedure: 05/17/19 Preoperative Diagnosis: Screening colonoscopy Postoperative Diagnosis: Rectal polyp Procedure(s) Performed: Colonoscopy Anesthesia: MAC Surgeon: Bertrand Venegas Pathology: other (Rectal polyp) Condition: stable Disposition: PACU Description of Procedure: Patient's placed on the endoscopy table in the lateral position. He received IV sedation. Digital rectal exam was performed which revealed no abnormalities. Flexible colonoscope was then placed patient anus and passed throughout the entire colon. The ileocecal valve was visualized. The cecum, ascending and transverse colon appeared normal. The descending and sigmoid colon appeared normal. Scope was then brought back the rectum and a small sessile polyp was seen. This removed with the cold forcep. Scope was withdrawn for patient.
[2019-05-17 09:20] VITALS: RESP 16
[2019-05-17 09:31] VITALS: BP 116/79; PULSE 105
== END 2019-05-17 09:46 | disposition home or self-care (01) ==
LOC: ORWHC2ENDO 07:51
PROVIDERS: ATTEND Surgery
DX: Z12.11 Encounter for screening for malignant neoplasm of colon (principal); K62.1 Rectal polyp; I10 Essential (primary) hypertension; E66.01 Morbid (severe) obesity due to excess calories; Z90.49 Acquired absence of other specified parts of digestive tract; Z79.899 Other long term (current) drug therapy; Z98.890 Other specified postprocedural states; Z80.3 Family history of malignant neoplasm of breast; Z68.41 Body mass index [BMI] 40.0-44.9, adult
CPT/HCPCS: 88305; 45380; J2704

== ENCOUNTER → 2020-10-22 | Outpatient (CLI) | payer OTHER ==
--- NOTE | 2020-10-22 13:05 | CONS ---
CONSULTATION DATE OF SERVICE: 10/22/2020 55-year-old gentleman has been evaluated in the [facility] for possible obstructive sleep apnea-hypopnea syndrome. HISTORY OF PRESENT ILLNESS/SLEEP WAKE EVALUATION: SLEEP SCHEDULE: Patient's usual sleep schedule on weekdays on 10 to 11 p.m. until 5:45 a.m. On weekends, he gets up around 7:00 am and may go to bed late. FALLING ASLEEP: Sometimes he has problems with falling asleep. He has a TV set in bedroom. DURING SLEEP: He usually sleeps on the side and back position. He snores, has witnessed episodes of stopped breathing during sleep. The patient wakes up from sleep at times with nocturia and dry mouth. No history of hypnagogic hallucinations, sleep paralysis or cataplexy. DURING THE DAY/SLEEP WAKE EVALUATION: In the morning, the patient wakes up tired. Feels weakness, sleepiness during the day. Wesley Sleepiness Scale is in very high range of 18. Positive history of sexual dysfunction. PAST MEDICAL HISTORY: Hypertension, diabetes. PAST SURGICAL HISTORY: Cholecystectomy, hernia repair. FAMILY HISTORY: Heart problems and diabetes. PAST SURGICAL HISTORY: Cholecystectomy and hernia repair. MEDICATIONS: Metformin, Glimepiride, losartan, Chlorthalidone, Lantus and regular insulin. IV. SOCIAL HISTORY: Former smoker, quit about 18 years ago. Alcohol consumption: None at the present time. REVIEW OF SYSTEMS: Multiple awakenings from sleep, sleepiness during the day. PHYSICAL EXAMINATION: GENERAL: gentleman without distress. BP 118/76, HR 97. RR 18. Height 5 feet 10-1/2 inches, weight 334.0, body mass index 47.1, temperature 97.0, oxygen saturation on room air 95%. Oropharynx: Extremely low position of soft palate. Mallampati 4. Neck is extremely wide 20-1/2 inches in circumference. Supple, no JVD. Thyroid is not palpable. LUNGS: Clear to percussion and to auscultation. Good air exchange. No wheezing or rhonchi. HEART: S1, S2 regular. No murmurs, gallops, or rubs. ABDOMEN: Obese. Soft and nontender. Bowel sounds are present. No organomegaly appreciated. EXTREMITIES: No clubbing or cyanosis. ABRASIVE MIXER: Awake, alert, and oriented X3. Cranial nerves 2 to 7 intact. There is no fasciculation or atrophy noted. No focal deficits observed. IMPRESSION: 1. Loud snoring, witnessed episodes of stopped breathing during sleep, extremely low position of soft palate Mallampati 4, wide neck, 20.5 inches in circumference. Significant sleepiness. Wesley Sleepiness Scale is 18. Obstructive sleep apnea- hypopnea syndrome. 2. Obesity BMI 47.1. 3. Hypertension. 4. Diabetes mellitus. 5. Status post cholecystectomy. 6. Status post hernia repair. PLAN: 1. Polysomnography for evaluation of patient's breathing during sleep. 2. CPAP/BiPAP titration if sleep study confirms obstructive sleep apnea-hypopnea syndrome. 3. Preferable position during sleep on the side. 4. No driving if patient feels any sleepiness. 5. I will see patient for follow up visit to explain results of testing and following plan. Thank you very much for referring this patient for consultation. Sincerely, Serafin Hayes MD, PhD, FAASM Diplomat of [place] [employer] [employer] Bread Pan Greaser of [facility] [place] MMODL / ARIELN: [id number] /
== END ==
LOC: SLEEP 10:57
PROVIDERS: ATTEND Internal Medicine
DX: G47.33 Obstructive sleep apnea (adult) (pediatric) (principal); E66.9 Obesity, unspecified; I10 Essential (primary) hypertension; E11.9 Type 2 diabetes mellitus without complications; Z68.42 Body mass index [BMI] 45.0-49.9, adult; Z90.49 Acquired absence of other specified parts of digestive tract; Z98.890 Other specified postprocedural states; Z79.4 Long term (current) use of insulin; Z79.899 Other long term (current) drug therapy; Z87.891 Personal history of nicotine dependence
CPT/HCPCS: 99211

== ENCOUNTER → 2021-10-15 | Outpatient (CLI) | payer OTHER ==
--- NOTE | 2021-10-15 18:49 | SFUN ---
SLEEP CENTER FOLLOW UP NOTE DATE OF SERVICE: 10/15/2021 This 56-year-old gentleman has been followed in Sleep Center for treatment of obstructive sleep apnea-hypopnea syndrome. Recently the patient had a diagnostic polysomnogram which showed extremely severe obstructive sleep apnea-hypopnea syndrome with extremely severe oxygen desaturation. Then the patient had CPAP titration. During titration his respiration improved. I discussed the results of sleep studies with the patient in detail, also indicating the risk of not being treated for obstructive sleep apnea. Currently the patient does not want to start CPAP because he is afraid of a claustrophobic effect related to the mask. At the same time, the patient was able to do the titration procedure. He does want to try a full-face mask. [place] Sleepiness Scale today is in high range at 15. MEDICATIONS: Metformin, losartan, chlorthalidone, Lantus. PHYSICAL EXAMINATION: GENERAL: Pleasant patient in no distress. VITAL SIGNS: BP 84/51, HR 103, RR 18, temperature 97.8, oxygen saturation at room air 94%. Height 5 feet 11 inches, weight 325.8, body mass index 45.4. HEENT: PERRLA, EOMI, evaluation of oropharynx showed tongue protrudes midline. Extremely low position of soft palate; Mallampati IV. NECK: Supple, no JVD. Thyroid is not palpable. LUNGS: Clear to percussion and to auscultation. Good air exchange. No wheezing or rhonchi. HEART: S1, S2 regular. No murmurs, gallops, or rubs. ABDOMEN: Obese. EXTREMITIES: No clubbing or cyanosis. HEEL BUILDER: Awake, alert, and oriented X3. Cranial nerves 2 to 7 intact. There is no fasciculation or atrophy. noted. No focal deficits observed. IMPRESSION: 1. Extremely severe obstructive sleep apnea-hypopnea syndrome; apnea-hypopnea index 124.7 with extremely severe oxygen desaturation to 58.2%. 2. Obesity. 3. Hypertension. 4. Diabetes mellitus. 5. Status post cholecystectomy. 6. Status post hernia repair. PLAN: 1. Patient will be started on treatment with CPAP. He agreed to try nasal pillow mask and should use equipment every night for the whole night. 2. I will see the patient for follow-up visit to check his compliance with treatment, clinical response on treatment, and to make any necessary adjustments related to mask fitting, pressure and humidification. 3. Aggressive losing-weight program. 4. No driving if feeling sleepiness. 5. I wrote a prescription for nasal pillow mask. Thank you very much for allowing me to participate in the management of your patient. Sincerely, Serafin Hayes MD, PhD, FAASM Diplomat of [place] [employer] Sleep Medicine Board of [place] [employer] Campus Safety Officer of [facility] [place] [email or web address] / ARIELN: [id number] /
== END ==
LOC: SLEEP 15:23
PROVIDERS: ATTEND Internal Medicine
DX: G47.33 Obstructive sleep apnea (adult) (pediatric) (principal); G47.36 Sleep related hypoventilation in conditions classified elsewhere; E66.9 Obesity, unspecified; I10 Essential (primary) hypertension; E11.9 Type 2 diabetes mellitus without complications; Z90.09 Acquired absence of other part of head and neck; Z98.890 Other specified postprocedural states; Z79.84 Long term (current) use of oral hypoglycemic drugs; Z68.42 Body mass index [BMI] 45.0-49.9, adult; Z99.89 Dependence on other enabling machines and devices

== ENCOUNTER 2024-04-03 10:27 | Emergency (ER) | payer OTHER ==
[2024-04-03 10:43] VITALS: RESP 20
--- NOTE | 2024-04-03 11:06 | ED ---
Lower Extremity Injury HPI - General Chief Complaint: Extremity Injury, Lower Stated Complaint: IHS Time Seen by Provider: 04/03/24 10:46 Source: patient, RN notes reviewed Mode of arrival: ambulatory Limitations: no limitations - History of Present Illness Initial Comments: This is a 59-year-old male presenting with left lower leg injury x 1 hour. 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 Patient states the wound was bandaged at work and was sent to the ER for imaging and further treatment. Patient states pain is currently 1 out of 10 denies distal paresthesia or strength deficits. Patient is unsure when he last received a tetanus vaccination. MD Complaint: leg injury Onset/Timin -: hour(s) Injury: Leg: Left Type of Injury: laceration Place: work Severity scale (1-10): 1 Context: direct blow Treatments Prior to Arrival: bandage - Related Data Home Medications Medication Instructions Recorded Confirmed Benazepril [Lotensin] 10 mg PO DAILY 03/16/19 05/17/19 Chlorthalidone [Hygroton] 25 mg PO DAILY 03/16/19 05/17/19 Ergocalciferol [Vitamin D2 50,000 unit PO Q30D 03/16/19 05/17/19 (DRISDOL)] Multivitamins, Thera [Multivitamin 1 tab PO DAILY 03/16/19 05/17/19 (formulary)] Previous Rx's Medication Instructions Recorded Bacitracin/Polymyx Oint 1 applic TOPICAL BID #30 gm 04/03/24 [Polysporin Oint] Cephalexin [Keflex] 500 mg PO Q6HR 1 Days #28 cap 04/03/24 Allergies Allergy/AdvReac Type Severity Reaction Status Date / Time No Known Allergies Allergy Verified 04/03/24 10:44 Review of Systems ROS Statement: Those systems with pertinent positive or pertinent negative responses have been documented in the HPI. ROS Other: All systems not noted in ROS Statement are negative. Past Medical History Past Medical History: Diabetes Mellitus Additional Past Medical History / Comment(s): "borlerline blood pressure", History of Any Multi-Drug Resistant Organisms: None Reported Past Surgical History: Cholecystectomy, Ear Surgery, Hernia Repair Past Anesthesia/Blood Transfusion Reactions: Motion Sickness Past Psychological History: No Psychological Hx Reported Smoking Status: Never smoker Past Alcohol Use History: None Reported Past Drug Use History: None Reported - Past Family History Mother Family Medical History: Cancer Additional Family Medical History / Comment(s): breast General Exam Limitations: no limitations General appearance: alert, in no apparent distress Head exam: Present: atraumatic, normocephalic, normal inspection Eye exam: Present: normal appearance, PERRL, EOMI. Absent: scleral icterus, conjunctival injection, periorbital swelling ENT exam: Present: normal exam, mucous membranes moist Neck exam: Present: normal inspection. Absent: tenderness, meningismus, lymphadenopathy Respiratory exam: Present: normal lung sounds bilaterally. Absent: respiratory distress, wheezes, rales, rhonchi, stridor Cardiovascular Exam: Present: regular rate, normal rhythm, normal heart sounds. Absent: systolic murmur, diastolic murmur, rubs, gallop, clicks GI/Abdominal exam: Present: soft, normal bowel sounds. Absent: distended, tenderness, guarding, rebound, rigid Extremities exam: Present: normal inspection, full ROM, normal capillary refill. Absent: tenderness, pedal edema, joint swelling, calf tenderness Back exam: Present: normal inspection Neurological exam: Present: alert, oriented X3, CN II-XII intact Psychiatric exam: Present: normal affect, normal mood Skin exam: Present: warm, dry, intact, normal color, other (Positive V-shaped avulsion of left distal jacome going into subcutaneous tissue. No obvious foreign body, significant bleeding or surrounding erythema.). Absent: rash Course Vital Signs 04/03/24 04/03/24 10:38 13:05 Temperature 98.2 F 98.1 F Pulse Rate 100 94 Respiratory 20 20 Rate Blood Pressure 127/72 122/77 O2 Sat by Pulse 98 98 Oximetry Procedures - Laceration Laceration #1 Consent Obtained: verbal consent Indication: laceration Site: lower extremity Size (cm): 20 Description: flap, avulsion Depth: simple, single layer Anesthetic Used: lidocaine 1% Anesthesia Technique: local infiltration Pre-repair: irrigated extensively Type of Sutures: nylon Size of Sutures: 5-0 Number of Sutures: 26 Technique: running Patient Tolerated Procedure: well Medical Decision Making - Medical Decision Making Was pt. sent in by a medical professional or institution (, PA, [employer] CRM DEVELOPER, urgent care, hospital, or custodial...) When possible be specific @ -[No] Did you speak to anyone other than the patient for history (EMS, parent, family, police, friend...)? What history was obtained from this source @ -[No] Did you review nursing and triage notes (agree or disagree)? Why? @ -[I reviewed and agree with nursing and triage notes] Were old charts reviewed (outside hosp., previous admission, EMS record, old EKG, old radiological studies, urgent care reports/EKG's, custodial records)? Report findings @ -[No old charts were reviewed] Differential Diagnosis (chest pain, altered mental status, abdominal pain women, abdominal pain men, vaginal bleeding, weakness, fever, dyspnea, syncope, headache, dizziness, GI bleed, back pain, seizure, CVA, palpatations, mental health, musculoskeletal)? @ -Lower extremity laceration, tib-fib fracture, compression syndrome, tetanus, this is not an exhaustive list EKG interpreted by me (3pts min.). @ -Not done X-rays interpreted by me (1pt min.). @ -Left lower extremity x-ray reveals no fracture or foreign body CT interpreted by me (1pt min.). @ -[None done] U/S interpreted by me (1pt. min.). @ -[None done] What testing was considered but not performed or refused? (CT, X-rays, U/S, labs)? Why? @ -[None] What meds were considered but not given or refused? Why? @ -[None] Did you discuss the management of the patient with other professionals (professionals i.e. , PA, [employer] CRM DEVELOPER, lab, RT, psych nurse, director of social work, outdoor adventure guides, teacher, officer captain, assistant case manager)? Give summary @ -[No] Was smoking cessation discussed for >3mins.? @ -[No] Was critical care preformed (if so, how long)? @ -[No] Were there social determinants of health that impacted care today? How? (Homelessness, low income, unemployed, alcoholism, drug addiction, transportation, low edu. Level, literacy, decrease access to med. care, long term, rehab)? @ -[No] Was there de-escalation of care discussed even if they declined (Discuss DNR or withdrawal of care, Hospice)? DNR status @ -[No] What co-morbidities impacted this encounter? (DM, HTN, Smoking, COPD, CAD, Cancer, CVA, ARF, Chemo, Hep., AIDS, mental health diagnosis, sleep apnea, morbid obesity)? @ -Diabetes Was patient admitted / discharged? Hospital course, mention meds given and route, prescriptions, significant lab abnormalities, going to OR and other pertinent info. @ -Discharge. Left lower extremity x-ray revealed no fracture or retained foreign body. Laceration repair by me. Keflex sent to pharmacy as prophylactic antibiotic.. Undiagnosed new problem with uncertain prognosis? @ -[No] Drug Therapy requiring intensive monitoring for toxicity (Heparin, Nitro, Insulin, Cardizem)? @ -[No] Were any procedures done? @ -Yes 26 nylon sutures placed by me Diagnosis/symptom? @ -Left lower extremity laceration Acute, or Chronic, or Acute on Chronic? @ -Acute Uncomplicated (without systemic symptoms) or Complicated (systemic symptoms)? @ -Uncomplicated Side effects of treatment? @ -[No] Exacerbation, Progression, or Severe Exacerbation? @ -[No] Poses a threat to life or bodily function? How? (Chest pain, [place], DC, pneumonia, PE, COPD, DKA, ARF, appy, cholecystitis, CVA, Diverticulitis, Homicidal, Suicidal, threat to staff... and all critical care pts) @ -[No] Disposition Clinical Impression: Leg laceration Disposition: HOME SELF-CARE Condition: Good Instructions (If sedation given, give patient instructions): Care For Your Stitches (ED), Laceration (ED) Prescriptions: Cephalexin [Keflex] 500 mg PO Q6HR 1 Days #28 cap Bacitracin/Polymyx Oint [Polysporin Oint] 1 applic TOPICAL BID #30 gm Is patient prescribed a controlled substance at d/c from ED?: No Referrals: Mann Lucio MD [Primary Care Provider] - 1-2 days Time of Disposition: 13:05
--- NOTE | 2024-04-03 11:31 | XR ---
EXAMINATION TYPE: XR tibia fibula LT DATE OF EXAM: 04/03/2024 CLINICAL HISTORY: pain TECHNIQUE: AP and lateral images of the left tibia and fibula are obtained. COMPARISON: None. FINDINGS: There is no acute fracture/dislocation evident. The joint spaces appear within normal jackson its. The overlying soft tissue appears unremarkable. IMPRESSION: There is no acute fracture or dislocation seen. ICD 10 NO FRACTURE, INITIAL EVALUATION [facility], , 04/03/2024 11:29 AM
[2024-04-03] MEDS: LIDOCAINE 1% INJ 10MG/ML (20 ML MDV) SQ ONE (11:40)
[2024-04-03] MEDS: DIPH,PERTUS(ACELL)TETVAC-LF 0.5 ML VIAL IM ONE (12:19)
[2024-04-03 13:06] VITALS: BP 122/77; PULSE 94; TEMP 98.1
== END 2024-04-03 13:05 | disposition home or self-care (01) ==
LOC: EC 10:27
CPT/HCPCS: 12005; 90471; 90715; 99283

== ENCOUNTER → 2024-04-12 | Outpatient (CLI) | payer OTHER ==
[2024-04-12 15:39] LABS: Basophils # (A) 0.05 X 10*3/uL (0.00-0.10); Basophils % (A) 0.7 %; Eosinophils # (A) 0.27 X 10*3/uL (0.04-0.35); Eosinophils % (A) 3.5 %; HCT 46.7 % (39.6-50.0); HGB 15.3 g/dL (13.0-17.0); Lymphocytes # (A) 1.36 X 10*3/uL (0.90-5.00); Lymphocytes % (A) 17.7 %; MCH 30.5 pg (27.0-32.0); MCHC 32.8 g/dL (32.0-37.0); MCV 93.2 FL (80.0-97.0); Mean Platelet Volume 10.4 FL (9.5-12.2); Monocytes # (A) 0.66 X 10*3/uL (0.20-1.00); Monocytes % (A) 8.6 %; NRBC Per 100 WBC 0 X 10*3/uL (0.00-0.01); Neutrophils # (A) 5.33 X 10*3/uL (1.80-7.70); Neutrophils % (A) 69.2 %; Platelet Count 305 X 10*3/uL (140-440); RBC 5.01 X 10*6/uL (4.40-5.60); RDW 13.5 % (11.5-14.5); WBC 7.69 X 10*3/uL (4.50-10.00)
[2024-04-12 16:57] LABS: Erythrocyte Sedimentation Rate 22 mm/Hr (0-20)
[2024-04-12 20:17] LABS: ALT 26 U/L (10-49); AST 19 U/L (14-35); Albumin 4.2 g/dL (3.8-4.9); Alkaline Phosphatase 76 U/L (41-126); Blood Urea Nitrogen 25.3 mg/dL (9.0-27.0); Calcium 9.8 mg/dL (8.7-10.3); Carbon Dioxide 27.2 mmol/L (21.6-31.8); Chloride 100 mmol/L (96-109); Globulin 2.8 g/dL (1.6-3.3); Glucose 133 mg/dL (70-110); Potassium 5.4 mmol/L (3.5-5.5); Prealbumin 22.5 mg/dL (18.0-42.0); Sodium 138 mmol/L (135-145); Total Bilirubin 0.4 mg/dL (0.3-1.2)
== END | disposition home or self-care (01) ==
LOC: LABWHC1 09:58
PROVIDERS: ATTEND Family Medicine
DX: E11.622 Type 2 diabetes mellitus with other skin ulcer (principal); I87.312 Chronic venous hypertension (idiopathic) with ulcer of left lower extremity; T81.33XA Disruption of traumatic injury wound repair, initial encounter; E11.59 Type 2 diabetes mellitus with other circulatory complications; E11.65 Type 2 diabetes mellitus with hyperglycemia
CPT/HCPCS: 36415; 80053; 83036; 84134; 85025; 85652; 86140

== ENCOUNTER → 2024-04-24 | Outpatient (CLI) | payer OTHER ==
--- NOTE | 2024-04-24 11:41 | US ---
EXAMINATION TYPE: US arterial LE single level DATE OF EXAM: 04/24/2024 10:38 AM COMPARISONS: None. CLINICAL INDICATION: Male, 59 years old with history of I87.312 CHRONIC VENOUS HYPERTENSION (IDIOPATH IC) W; Pt a wound center pt, has non-healing wound left anterior jacome TECHNIQUE: Systolic pressures were taken of the upper and lower extremity arteries with ankle-brachia l indices and toe brachial indices calculated bilaterally. History of: Smoker: No Hypertension: Yes Diabetic: Yes Hyperlipidemia: Yes TIA/CVA: No Previous Vascular Surgery: No CAD: No NV: No Vascular Ulcers: Left anterior jacome Claudication: No Gangrene: No FINDINGS: Doppler Waveforms: Right: Multiphasic Left: Multiphasic Brachial Artery systolic pressure: Right: 103 Left: 111 Posterior Tibial artery systolic pressure: Right: 124 Left: 126 Dorsalis Pedis artery systolic pressure: Right: 107 Left: 116 Toe artery systolic pressure: Right: 102 Left: 103 Ankle-Brachial Indices: Right: 1.1 Left: 1.1 (Vessel hardening > 1.4; Normal 0.9 - 1.4, Moderate 0.7 - 0.9, Severe 0.5-0.7) Toe Brachial Indices: Right: 0.9 Left: 0.9 (Normal > 0.6; Mild 0.35 - 0.59, Moderate 0.12 - 0.34, Severe <0.12) IMPRESSION: Normal ankle-brachial brachial indices bilaterally. [facility], , 04/24/2024 11:38 AM
--- NOTE | 2024-04-24 11:43 | US ---
EXAMINATION TYPE: US venous doppler duplex LE LT DATE OF EXAM: 04/24/2024 10:19 AM COMPARISON: NONE CLINICAL INDICATION: Male, 59 years old with history of I87.213 chronic venous hypertension; Non-heal ing wound left anterior jacome, Pain, Swelling TECHNIQUE: The lower extremity deep venous system is examined utilizing real time linear array sonog rosa maria with graded compression, color doppler sonography, and spectral doppler. SIDE PERFORMED: Left FINDINGS: VESSELS IMAGED: Common Femoral Vein Deep Femoral Vein Greater Saphenous Vein * Femoral Vein Popliteal Vein Small Saphenous Vein * Proximal Calf Veins (* superficial vessels) Left Leg: Negative for DVT, Color Doppler imaging shows patency of the vessels. Spectral waveforms w ith valsalva show venous insufficiency within left GSV and proximal femoral vein IMPRESSION: Venous insufficiency within the left greater saphenous vein. No evidence for deep vein thrombosis. [facility], , 04/24/2024 11:40 AM
== END | disposition home or self-care (01) ==
LOC: RADUSWWP 09:51
PROVIDERS: ATTEND Family Medicine
DX: I87.312 Chronic venous hypertension (idiopathic) with ulcer of left lower extremity (principal); T81.33XA Disruption of traumatic injury wound repair, initial encounter; E11.622 Type 2 diabetes mellitus with other skin ulcer; E11.59 Type 2 diabetes mellitus with other circulatory complications; E11.65 Type 2 diabetes mellitus with hyperglycemia; I87.2 Venous insufficiency (chronic) (peripheral)
CPT/HCPCS: 93922